=== PATIENT | female | born 1960 | race Caucasian/White ===

== ENCOUNTER → 2024-03-27 09:25 | Outpatient (REF) | payer OTHER, SELFPAY | LOC: WDC 09:25 | PROVIDERS: ATTENDING PHYSICIAN Family Medicine | DX: Z12.31 Encounter for screening mammogram for malignant neoplasm of breast (principal) | CPT/HCPCS: 77063; 77067 ==

== ENCOUNTER 2024-11-13 19:24 | Emergency (ER) | payer OTHER, SELFPAY ==
[2024-11-13 19:26] VITALS: BP 156/97
--- NOTE | 2024-11-13 22:02 | ED.MUSCINJ ---
HPI-Injury
General
Chief Complaint: Musculo-Skeletal Complaint
Source: patient
Exam Limitations: none
Time Seen by Provider: 11/13/24 21:10
History of Present Illness-Injury
Initial Injury comments:
64-year-old female [id number] presents complaining of left hand pain after a fall she sustained today. She tripped and fell. Complains of pain mainly over the fifth metacarpal. No other complaints at this time
Past History
Past History
ED Past Medical History: GERD, Valvular disease and Other (Migraine headaches)
ED Past Surgical History: Other (Noncontributory)
Social History
Tobacco: Non-smoker
Alcohol: Occasional
Drug: None
Personal:
Living: with family
Family History
Family History: Other (Noncontributory)
Phy Exam
Physical Exam
Physical Exam:
General: Well-appearing female no acute respiratory distress
Musculoskeletal exam: Left hand tender over the fifth metacarpal slight ulnar deviation of the small finger. She is able to make a full fist. No deformities otherwise the left wrist is nontender
Skin is intact
Injury Course
Orders/Labs/Results
Orders:
Orders
11/13/24 19:33
Hand, Left 3 View [CR Hand - Left Min 3 Views] Urgent
Comment:
Reason For Exam: fall left hand pain
MDM/Problems Addressed
Differential Diagnosis Includes:
Left hand pain after a fall. Consider fracture versus dislocation versus soft tissue injury
X-rays of the hand were obtained which are negative for acute fracture or dislocation but there is some ulnar deviation of the small finger. Will cody tape to the ring finger and apply splint. Suspect possible soft tissue injury. Recommend
follow-up with orthopedics
*Critical Care Note
Total Time (30-74mins, 75-104mins- exclusive of procedures): Not Applicable
ED Attending Note
-
Portions of this chart may have been created with voice recognition software.� Occasional wrong word or��sound alike� substitutions may have occurred due to the inherent limitations of voice recognition software.
Discharge Plan
Departure
Patient Disposition: Home (Routine Discharge)
Date of Disposition: 11/13/24
Time of Disposition: 22:04
Patient with high blood pressure during this ER visit?: No
Discharge Problem:
Hand injury
Instructions: Muscle and Bone Pain (DC)
Prescriptions:
No Action
ibuprofen 200 MG capsule
200 mg PO PRN PRN (Reason: pain)
oxycodone-acetaminophen 5 MG/325 MG tablet
1 tab PO Q6HPRN PRN (Reason: pain) Qty: 15 0RF
cephalexin 500 MG capsule
500 mg PO QID Qty: 40 0RF
Referrals:
Cyn Finnegan MD [Family Provider] -
Gasper Fernandez MD [Active] -
Activity Restrictions/Additional Instructions:
Use splint. Use ibuprofen or Tylenol. Follow-up with orthopedics
Interventions
Interventions:
*Risk Screen - Suicide Last Done: 11/13/24 19:26
*General Assessment Last Done: 11/13/24 19:26
*Neglect/Abuse Screening Last Done: 11/13/24 19:26
Discharge Date and Time
Print Language: ROMANSH
[2024-11-13 22:23] VITALS: BP 152/93
--- NOTE | 2024-11-13 22:25 | EDRN ---
L 4th and 5th fingers were cody taped and foam finger splint applied under L 5th finger per MARIPOSA Aldana.
== END 2024-11-13 22:25 | disposition home or self-care (01) ==
LOC: EMR 19:24
PROVIDERS: EMERGENCY PHYSICIAN Emergency Medicine; FAMILY PHYSICIAN Hospitalist
DX: S69.92XA Unspecified injury of left wrist, hand and finger(s), initial encounter (principal); W01.0XXA Fall on same level from slipping, tripping and stumbling without subsequent striking against object, initial encounter
CPT/HCPCS: 99283; 73130

== ENCOUNTER → 2025-03-29 08:09 | Outpatient (REF) | payer OTHER, SELFPAY | LOC: RAD 08:09 | PROVIDERS: ATTENDING PHYSICIAN Internal Medicine Rheumatology; FAMILY PHYSICIAN Hospitalist | DX: M81.0 Age-related osteoporosis without current pathological fracture (principal) | CPT/HCPCS: 77080 ==

== ENCOUNTER → 2025-04-02 09:42 | Outpatient (REF) | payer OTHER, SELFPAY | LOC: WDC 09:42 | PROVIDERS: ATTENDING PHYSICIAN Advanced Practice Midwife; FAMILY PHYSICIAN Hospitalist | DX: Z12.31 Encounter for screening mammogram for malignant neoplasm of breast (principal) | CPT/HCPCS: 77063; 77067 ==